=== PATIENT | male | born 1985 | race Two or more races ===

== ENCOUNTER 2017-06-11 10:50 | Emergency (ER) | payer OTHER ==
[~2017-06-11] VITALS: Ht 167.6 cm; Wt 68.8 kg
[2017-06-11] MEDS ORDERED: MORPHINE SULFATE 4 MG/ML, 1ML IVPush PRN (11:30)
[2017-06-11] MEDS ORDERED: KETOROLAC 30 MG/1 ML IVPush ONE (11:30)
[2017-06-11] MEDS ORDERED: SODIUM CHLORIDE FLUSH 10ML SYR IVF ONE (11:30)
[2017-06-11] MEDS ORDERED: ONDANSETRON 2MG/ML, 2ML IVPush ONE (11:30)
[2017-06-11] MEDS ORDERED: morphine SULFATE 10 MG/ML, 1ML ONE (11:40)
[2017-06-11] MEDS ORDERED: ONDANSETRON 2MG/ML, 2ML ONE (11:41)
[2017-06-11] MEDS ORDERED: KETOROLAC 30 MG/1 ML ONE (11:41)
[2017-06-11 12:06] LABS: HEMATOCRIT 49.1 % (39.2-51.8); HEMOGLOBIN 16.7 g/dL (13.7-18.0); WHITE BLOOD COUNT 5.9 x10^3/uL (3.4-10)
[2017-06-11 12:12] LABS: BLOOD UREA NITROGEN 12 mg/dL (7-18)
[2017-06-11 13:01] VITALS: BP 119/76
== END 2017-06-11 13:54 | disposition home or self-care (01) ==
LOC: ED 13:47
DX: N20.2 Calculus of kidney with calculus of ureter (principal); R31.29 Other microscopic hematuria
CPT/HCPCS: 36415; 74000; 80048; 81001; 82040; 83690; 85025; 96361; 96374; 99285; J1885; J2405